=== PATIENT | male | born 1985 | race Caucasian/White ===

== ENCOUNTER 2016-08-08 19:35 | Emergency (ER) | payer BC, OTHER ==
[2016-08-08] MEDS ORDERED: ONDANSETRON 4 MG TAB.RAPDIS PO ONE (20:16)
[2016-08-08] MEDS ORDERED: OXYCODONE-ACETAMINOPHEN 5-325 MG TABLET PO ONE (20:16)
[2016-08-08] MEDS ORDERED: DIPH/PERTUSS(ACELL)/TETANUS VAC/PF 0.5 ML SYR (>=10YO) IM ONE (20:16)
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
[2016-08-08] MEDS ORDERED: LIDOCAINE 1%/EPINEPHRINE INJ 20 ML VIAL INJ ONE (21:21)
[2016-08-08] MEDS ORDERED: HYDROMORPHONE HCL INJ/PF 2 MG/ML AMPULE IM ONE (21:21)
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
[2016-08-08 23:08] VITALS: BP 141/75
== END 2016-08-08 23:06 | disposition home or self-care (01) ==
LOC: ER 19:35
PROC: 0HQEXZZ Repair Left Lower Arm Skin, External Approach (ICD-10-PCS; principal; 2016-08-08)
PROC: 0HQGXZZ Repair Left Hand Skin, External Approach (ICD-10-PCS; 2016-08-08)
DX: S51.822A Laceration with foreign body of left forearm, initial encounter (principal); S61.412A Laceration without foreign body of left hand, initial encounter; S61.219A Laceration without foreign body of unspecified finger without damage to nail, initial encounter; M89.8X5 Other specified disorders of bone, thigh; V49.9XXA Car occupant (driver) (passenger) injured in unspecified traffic accident, initial encounter; F90.9 Attention-deficit hyperactivity disorder, unspecified type; F17.200 Nicotine dependence, unspecified, uncomplicated
CPT/HCPCS: 99283; 96372; 73552; 73090; 12002; S0119; J3490; J1170

== ENCOUNTER 2016-09-09 16:33 | Emergency (ER) | payer SELFPAY ==
--- NOTE | 2016-09-09 18:16 | ER Document Report ---
HPI - HPI Pain Level: 3 Notes: Patient is a 31-year-old male who presents the ED complaining of right shoulder pain without any known injury 2 hours. Patient states that he was fishing when he noticed the pain. He has not taken anything or done anything for his symptoms at this point. Patient states that the pain can travel down his arm and feels like a tingling at times. Patient denies any head or neck injury or pain. Patient states he is still able to move his shoulder and arm but does have discomfort with movement in the shoulder. Denies any drug allergies. Patient does not take any medications daily. Denies any significant past medical history. Patient does smoke but denies any other illicit drug use. Denies any fever, headache, chest pain, palpitations, syncope, cough, wheeze, shortness of breath, abdominal pain, nausea/vomiting/diarrhea, dysuria, or rash. - ROS Notes: REVIEW OF SYSTEMS: CONSTITUTIONAL : Denies fever, chills, or sweats. Denies recent illness. EENT: Denies eye, ear, throat, or mouth pain or symptoms. Denies nasal or sinus congestion or discharge. Denies throat, tongue, or mouth swelling or difficulty swallowing. CARDIOVASCULAR: Denies chest pain. Denies palpitations or racing or irregular heart beat. Denies ankle edema. RESPIRATORY: Denies cough, cold, or chest congestion. Denies shortness of breath, difficulty breathing, or wheezing. GASTROINTESTINAL: Denies abdominal pain or distention. Denies nausea, vomiting , or diarrhea. Denies blood in vomitus, stools, or per rectum. Denies black, tarry stools. Denies constipation. GENITOURINARY: Denies difficulty urinating, painful urination, burning, frequency, blood in urine, or discharge. MUSCULOSKELETAL: see hpi SKIN: Denies rash, lesions or sores. NEUROLOGICAL: Denies confusion or altered mental status. Denies passing out or loss of consciousness. Denies dizziness or lightheadedness. Denies headache. Denies weakness or paralysis or loss of use of either side. Denies problems with gait or speech. PSYCHIATRIC: Denies anxiety or stress. Denies depression, suicidal ideation, or homicidal ideation. ALL OTHER SYSTEMS REVIEWED AND NEGATIVE. Dictation was performed using [employer] voice recognition software - CARDIOVASCULAR Cardiovascular: DENIES: Chest pain - DERM Skin Color: Normal Past Medical History - Social History Smoking Status: Current Every Day Smoker Chew tobacco use (# tins/day): No Frequency of alcohol use: Social Drug Abuse: None Family History: Reviewed & Not Pertinent Patient has suicidal ideation: No Patient has homicidal ideation: No Renal/ Medical History: Denies: Hx Peritoneal Dialysis Past Surgical History: Reports: Hx Orthopedic Surgery - Immunizations Immunizations up to date: Yes Hx Diphtheria, Pertussis, Tetanus Vaccination: Yes Vertical Provider Document - CONSTITUTIONAL Agree With Documented VS: Yes Notes: PHYSICAL EXAMINATION: GENERAL: Well-appearing, well-nourished and in no acute distress. HEAD: Atraumatic, normocephalic. EYES: Pupils equal round and reactive to light, extraocular movements intact, sclera anicteric, conjunctiva are normal. ENT: EAC clear b/l. TM's intact b/l without erythema, fluid, or perforation. Nares patent and without discharge. oropharynx clear without exudates. No tonsilar hypertrophy or erythema. Moist mucous membranes. No sinus tenderness. NECK: Normal range of motion, supple without lymphadenopathy. No rigidity/ meningismus. Spurling neg. LUNGS: Breath sounds clear to auscultation bilaterally and equal. No wheezes rales or rhonchi. HEART: Regular rate and rhythm without murmurs, rubs, gallops. Musculoskeletal: Rt shoulder: FROM to passive/active. Strength 4+/5. + mild speed's. + mild empty can. impingement neg. No tendon/muscle rupture. N/V intact distal. Forearm/wrist/hand/fingers unremarkable. Extremities: No cyanosis, clubbing, or edema b/l. Peripheral pulses 2+. Capillary refill less than 2 seconds. NEUROLOGICAL: Normal speech, normal gait. Normal sensory, motor exams PSYCH: Normal mood, normal affect. SKIN: Warm, Dry, normal turgor, no rashes or lesions noted. - INFECTION CONTROL TRAVEL OUTSIDE OF THE [place] IN LAST 30 DAYS: No - RESPIRATORY O2 Sat by Pulse Oximetry: 98 Course - Re-evaluation Re-evalutation: 09/09/16 18:15 Patient is afebrile, well-hydrated, 31-year-old male who presents to the ED with right shoulder pain, ?RC involvement versus biceps tendinitis based on H&P today. Vitals are stable. PE otherwise unremarkable any focal neurological deficit or tendon rupture. 15 mg of Toradol given IM today. I will send him home with meloxicam and Voltaren gel to use as well. Reviewed exercise and strengthening for the shoulder. Advised not to lift or perform strenuous activities at this time. Light exercises and strengthening as able. Conservative measures otherwise for symptoms. Recheck/establish with a PCM this week. Consider consult orthopedics for ongoing/worsening symptoms as well. Return to the ED with any worsening/concerning symptoms otherwise as reviewed in discharge. Patient is in agreement. - Vital Signs Vital signs: Temp Pulse Resp BP Pulse Ox 98.4 F 82 22 H 130/81 H 98 09/09/16 16:53 09/09/16 16:53 09/09/16 16:53 09/09/16 16:53 09/09/16 16:53 Discharge - Discharge Clinical Impression: Right shoulder pain Qualifiers: Chronicity: acute Qualified Code(s): M25.511 - Pain in right shoulder Condition: Stable Disposition: HOME, SELF-CARE Additional Instructions: Rest, Ice, Compression, Elevation Tylenol/ibuprofen as needed Light stretches daily Strength exercises as able Moist heat and massage may help F/u-Establish with PCM in 2-3 days for a recheck Consider consult(s) with Orthopedics for ongoing/worsening symptoms Return to the ED with any worsening symptoms and/or development of fever, headache, chest pain, palpitations, syncope, shortness of breath, trouble breathing, abdominal pain, n/v/d, loss of control of bowel/bladder, urinary retention, muscle weakness/paralysis, numbness/tingling, or other worsening symptoms that are concerning to you. Prescriptions: Diclofenac Sodium [Voltaren] 4 gm TP QID PRN #100 gel..gm. PRN Reason: Meloxicam 7.5 mg PO BID PRN #20 tablet PRN Reason: Forms: Elevated Blood Pressure, Smoking Cessation Education Referrals: [facility] [Provider Group] - Follow up in 1 week
[2016-09-09] MEDS ORDERED: KETOROLAC TROMETHAMINE INJ/PF 30 MG/1 ML SDV IM ONE (18:19)
[2016-09-09 18:30] VITALS: BP 128/73
== END 2016-09-09 18:28 | disposition home or self-care (01) ==
LOC: ER 16:33
DX: M25.511 Pain in right shoulder (principal); F17.200 Nicotine dependence, unspecified, uncomplicated
CPT/HCPCS: 99283; 96372; J1885